=== PATIENT | female | born 1985 | race Caucasian/White ===

== ENCOUNTER 2024-05-15 18:03 | Emergency (ER) | payer OTHER ==
[2024-05-15 18:51] LABS: Specific Gravity 1.014 (1.005-1.030); Sqamous Epithelial <5 /HPF (None Seen); Urine Bacteria <20 /HPF (<20); Urine Bilirubin NEGATIVE (Negative); Urine Blood 2+ (Negative); Urine Clarity Extremely Turbid (Clear); Urine Color Yellow (Yellow); Urine Crystals Unidentified Few /HPF (None Seen); Urine Culture Reflex Order REFLEXED; Urine Glucose NEGATIVE (Negative); Urine Ketones NEGATIVE (Negative); Urine Microscopic Reflex YN ORDER UMIC; Urine Mucus Slight /HPF (None Seen); Urine Nitrite 2+ (Negative); Urine Protein 1+ (Negative); Urine Urobilinogen Normal (Normal); Urine WBC >50 /HPF (<5); Urine WBC Clump Many /HPF (None Seen); Urine Yeast (Budding) Few /HPF (None Seen)
--- NOTE | 2024-05-15 19:33 | RAD REPORT ---
EXAMINATION: CT ABDOMEN AND PELVIS WITHOUT CONTRAST CLINICAL INDICATION: FLANK PAIN TECHNIQUE: CT abdomen and pelvis was performed, without IV contrast, as per department protocol. Axia l, sagittal and coronal reconstructions were obtained. One or more of the following dose reduction techniques were used: Automated exposure control, adjustment of the mA and kV according to the patien t size, and iterative reconstruction. Unless otherwise specified, incidental findings do not require dedicated imaging follow-up. COMPARISON: No prior exam. FINDINGS: The lack of intravenous contrast limits the sensitivity of this exam for evaluation of solid visceral organs, vascular structures, and retroperitoneum. LOWER CHEST: The visualized lung bases are clear. LIVER:Normal in size and contour. No focal lesion. Cholecystectomy clips. SPLEEN: Normal size. No focal lesion. PANCREAS: No mass, ductal dilation, or azul-pancreatic fluid. ADRENALS: Normal; no mass. KIDNEYS AND URETERS: Normal size and contour. No hydronephrosis. URINARY BLADDER: Normal contour. GASTROINTESTINAL TRACT: No evidence of bowel obstruction, significant free fluid, free air or abscess . APPENDIX: Normal appendix. LYMPH NODES: No lymphadenopathy. MUSCULOSKELETAL: No acute or suspicious osseous abnormality. ADDITIONAL FINDINGS: Spinal stimulator device. IMPRESSION: No acute or concerning abnormalities in the abdomen or pelvis, with evaluation limited by lack of IV contrast.
[2024-05-15] MEDS ORDERED: NA CHLORIDE 0.9% 1,000 ML ONE (19:48)
[2024-05-15] MEDS ORDERED: KETOROLAC 30 MG/ML INJ ONE (19:48)
[2024-05-15] MEDS ORDERED: ONDANSETRON 4 MG/2 ML VIAL ONE ×2 (19:48→20:39)
[2024-05-15 19:49] LABS: Absolute Basophils 0.1 K/uL (0-0.5); Absolute Eosinophils 0.3 K/uL (0-0.5); Absolute Lymphocytes (CBC) 2.5 K/uL (0.7-4.9); Absolute Neutrophil 7.9 K/uL (1.8-8.0); Basophils % 0.8 % (0-1.3); Eosinophils % 2.2 % (0-4.4); Hematocrit 38.2 % (36.0-45.0); Lymphocytes % 21.4 % (15.3-44.8); MCH 31.8 pg (27.0-35.0); MCV 93.8 fL (80-100); MPV 9.1 fL (7.6-11.3); Monocytes % 8.7 % (3.3-12.3); Neutrophils % 66.9 % (41.7-73.7); Platelets 276 thou/uL (152-406); RBC Red Blood Cell Count 4.07 M/uL (3.86-4.86); Red Cell Distribution Width 13.7 % (12.1-15.2)
[2024-05-15 20:06] LABS: Albumin 3.4 g/dL (3.4-5.0); Albumin/Globulin Ratio 0.9 (1.1-1.8); Anion Gap 11.6 mEq/L (5.0-15.0); Globulin 3.6 g/dL (2.3-3.5); Potassium 3.6 mEq/L (3.5-5.1)
--- NOTE | 2024-05-15 20:26 | EDPHYS ---
Physician Documentation [facility] Name: Anaid Perez Age: 38 yrs Sex: Female : 1985 Arrival Date: 05/15/2024 Time: 18:03 Bed DX3 Private MD: ED Physician Sarthak Harding HPI: 05/15 20:21 This 38 yrs old Female presents to ER via Ambulatory with complaints of Back Pain, SIDE kb PAIN. 20:24 Pt is a 38 year old female who presents for right flank pain that radiates to abd and kb urinary frequency/urgency since yesterday. Reports nausea and vomiting today. Denies fever. . 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 - Infectious Disease History:: Denies. - Social history:: Smoking status: Reported history of juuling and/or vaping. ROS: 20:17 Constitutional: As per HPI kb Exam: 20:17 Constitutional: This is a well developed, well nourished patient who is awake, alert, kb and in no acute distress. Head/Face: Normocephalic, atraumatic. ENT: Moist Mucous membranes Cardiovascular: Regular rate Respiratory: Respirations even and unlabored. No increased work of breathing. Talking in full sentences Abdomen/GI: Soft, non-tender. No distention Skin: Warm, dry with normal turgor. Normal color. MS/ Extremity: Pulses equal, no cyanosis. Neurovascular intact. Full, normal range of motion. Neuro: Awake and alert, GCS 15, oriented to person, place, time, and situation. 20:17 Back: CVA tenderness, that is mild, is noted on the right, Vital Signs: 18:13 BP 127 / 91; Pulse 78; Resp 18; Temp 99; Pulse Ox 98% ; Weight 81.65 kg; Height 4 ft. db 11 in. ; 18:13 Body Mass Index 36.36 (81.65 kg, 149.86 cm) db MDM: 18:09 Medical Screening Exam initiated kb 20:21 Differential diagnosis: kidney stone, uti, pyelonephritis. Data reviewed: vital signs, kb nurses notes. Counseling: I had a detailed discussion with the patient and/or guardian regarding the historical points, exam findings, and any diagnostic results supporting the discharge/admit diagnosis, lab results, radiology results, the need for outpatient follow up, a family practitioner, to return to the emergency department if symptoms worsen or persist or if there are any questions or concerns that arise at home. 05/15 18:15 Order name: CBC with Diff; Complete Time: 20:00 kb 05/15 18:15 Order name: CMP; Complete Time: 20:12 kb 05/15 18:15 Order name: Lipase; Complete Time: 20:12 kb 05/15 18:15 Order name: Test, Urine; Complete Time: 18:54 kb 05/15 18:15 Order name: Urinalysis w/ reflexes; Complete Time: 18:54 kb 05/15 18:54 Order name: Urine Culture EDMS 05/15 18:15 Order name: CT Stone Protocol; Complete Time: 19:37 kb 05/15 18:15 Order name: IV Saline Lock; Complete Time: 19:45 kb 05/15 18:15 Order name: Labs collected and sent; Complete Time: 19:46 kb Administered Medications: 19:56 Drug: TORadol - Ketorolac IVP 15 mg IVP once Route: IVP; Site: left antecubital; vc1 05/16 00:58 Follow up: Response: No adverse reaction; Marked relief of symptoms vc1 05/15 19:56 Drug: Ondansetron IVP 4 mg IVP once; over 2 minutes Route: IVP; Site: left antecubital; vc1 20:00 Follow up: Response: No adverse reaction; Marked relief of symptoms vc1 19:56 Drug: NS 0.9% IV 1000 ml IV at 1 bolus Per protocol; to be given as a bolus over 60 vc1 minutes Route: IV; Rate: 1 bolus; Site: left antecubital; 20:56 Follow up: IV Status: Completed infusion; IV Intake: 1000ml vc1 20:51 Drug: Ondansetron IVP 4 mg IVP once; over 2 minutes Route: IVP; Site: left antecubital; vc1 21:00 Follow up: Response: No adverse reaction; Marked relief of symptoms vc1 20:51 Drug: Rocephin IV 1 grams IV at calculated rate once; Given slow IV push per pharmacy vc1 instructions Route: IV; Rate: calculated rate; Site: left antecubital; 21:00 Follow up: IV Status: Completed infusion; IV Intake: 10ml vc1 Disposition Summary: 05/15/24 20:25 Discharge Ordered Notes: Location: Home kb Condition: Stable kb Diagnosis - UTI/ Urinary tract infection, site not specified kb Followup: kb - With: Emergency Department - When: As needed - Reason: Worsening of condition Followup: kb - With: Private Physician - When: 2 - 3 days - Reason: Recheck today's complaints, Continuance of care, Re-evaluation by your physician Discharge Instructions: - Discharge Summary Sheet kb - Urinary Tract Infection, Adult, [id number] kb Forms: - Medication Reconciliation Form kb - Antibiotic Education kb - Prescription Opioid Use kb - Patient Portal Instructions kb - Leadership Thank You Letter kb Prescriptions: - Augmentin 875-125 mg Oral Tablet - take 1 tablet ORAL route every 12 hours for 10 days; 20 tablet; Refills: 0, kb Product Selection Permitted - Zofran 4 mg Oral tablet - take 1 tablet ORAL route every 6 hours As needed; 12 tablet; Refills: 0, kb Product Selection Permitted Addendum: 05/19/2024 09:23 Co-signature as Attending Physician, Sarthak Harding MD I reviewed the patient's care r t provided by the Advanced Practice Provider and agree with the diagnosis and treatment plan. Signatures: Dispatcher [employer] [facility] Catherine Sifuentes, RAILROAD INSPECTOR-C RAILROAD INSPECTOR-Brandonb Melissa Marsh RN RN vc1 Ana Connolly RN RN db Sarthak Harding MD MD rt Corrections: (The following items were deleted from the chart) 05/15 18:16 18:16 Stone Protocol+CT.RAD.BRZ ordered. EDMS EDMS 18:16 18:16 CBC+H.LAB.BRZ ordered. EDMS EDMS 18:16 18:16 COMPREHENSIVE METABOLIC PANEL+C.LAB.BRZ ordered. EDMS EDMS 18:16 18:16 LIPASE+C.LAB.BRZ ordered. EDMS EDMS 18:16 18:16 Test, Urine+UC.LAB.BRZ ordered. EDMS EDMS 18:16 18:16 Urinalysis+U.LAB.BRZ ordered. EDMS EDMS
--- NOTE | 2024-05-15 20:26 | ER ---
Nurse's Notes [facility] Name: Anaid Perez Age: 38 yrs Sex: Female : 1985 Arrival Date: 05/15/2024 Time: 18:03 Bed DX3 Private MD: Diagnosis: UTI/ Urinary tract infection, site not specified Presentation: 05/15 18:13 Chief complaint: Patient states: RIGHT FLANK PAIN RADIATING TO ABDOMEN WITH PAINFUL db URINATION AND N/V SINCE YESTERDAY. FREQUENT URINATION. Coronavirus screen: Client denies travel out of the [place] in the last 14 days. At this time, the client does not indicate any symptoms associated with coronavirus-19. Ebola Screen: Patient negative for fever greater than or equal to 101.5 degrees Fahrenheit, and additional compatible Ebola Virus Disease symptoms Patient denies exposure to infectious person. Patient denies travel to an Ebola-affected area in the 21 days before illness onset. No symptoms or risks identified at this time. Initial Sepsis Screen: Does the patient meet any 2 criteria? No. Patient's initial sepsis screen is negative. Does the patient have a suspected source of infection? No. Patient's initial sepsis screen is negative. Risk Assessment: Do you want to hurt yourself or someone else? Patient reports no desire to harm self or others. Onset of symptoms was May 15, 2024. 18:13 Method Of Arrival: Ambulatory db 18:13 Acuity: KERLINE 3 db Triage Assessment: 18:14 General: Appears in no apparent distress. comfortable, Behavior is calm, cooperative. db Pain: Complains of pain in right low back. Neuro: Level of Consciousness is awake, alert, obeys commands, Oriented to person, place, time, situation. Respiratory: Airway is patent Respiratory effort is even, unlabored, Respiratory pattern is. GI: Abdomen is non-distended, Reports nausea, vomiting. Musculoskeletal: Circulation, motion, and sensation intact. Capillary refill < 3 seconds. 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 - Infectious Disease History:: Denies. - Social history:: Smoking status: Reported history of juuling and/or vaping. Screenin:00 [facility] ED Fall Risk Assessment (Adult) History of falling in the last 3 months, vc1 including since admission No falls in past 3 months (0 pts) Confusion or Disorientation No (0 pts) Intoxicated or Sedated No (0 pts) Impaired Gait No (0 pts) Mobility Assist Device Used No (0 pt) Altered Elimination No (0 pt) Score/Fall Risk Level 0 - 2 = Low Risk Oriented to surroundings, Maintained a safe environment, Educated pt \T\ family on fall prevention, incl call for assistance when getting out of bed. Abuse screen: Denies threats or abuse. Nutritional screening: No deficits noted. Tuberculosis screening: No symptoms or risk factors identified. Assessment: 19:30 General: Appears in no apparent distress. uncomfortable, slender, well groomed, well vc1 developed, well nourished, Behavior is calm, cooperative, appropriate for age. Pain: Complains of pain in right low back Pain radiates to anterior aspect of right lateral abdomen Pain currently is 9 out of 10 on a pain scale. Neuro: Level of Consciousness is awake, alert, obeys commands, Oriented to person, place, time, situation, Appropriate for age. Cardiovascular: Heart tones S1 S2 present Capillary refill < 3 seconds Patient's skin is warm and dry. Respiratory: Airway is patent Respiratory effort is even, unlabored, Respiratory pattern is regular, symmetrical, Breath sounds are clear bilaterally. GI: Abdomen is round non-distended. : No deficits noted. No signs and/or symptoms were reported regarding the genitourinary system. EENT: No deficits noted. No signs and/or symptoms were reported regarding the EENT system. Derm: Skin is intact, is healthy with good turgor, Skin is dry, Skin is normal, Skin temperature is warm. Musculoskeletal: Range of motion: intact in all extremities. Vital Signs: 18:13 BP 127 / 91; Pulse 78; Resp 18; Temp 99; Pulse Ox 98% ; Weight 81.65 kg; Height 4 ft. db 11 in. ; 18:13 Body Mass Index 36.36 (81.65 kg, 149.86 cm) db ED Course: 18:08 Patient arrived in ED. gm2 18:09 Catherine Sifuentes FNP-C [facility] kb 18:09 Sarthak Harding MD is Attending Physician. kb 18:14 Triage completed. db 18:14 Arm band placed on Patient placed in waiting room. db 19:27 CT Stone Protocol In Process Unspecified. EDMS 19:45 Inserted saline lock: 20 gauge in left antecubital area, using aseptic technique. Blood vc1 collected. Flushed with 10 mL NS. 19:46 CBC with Diff Sent. vc1 19:46 CMP Sent. vc1 19:46 Lipase Sent. vc1 20:50 Provided Education on: complete abx. vc1 20:50 Patient has correct armband on for positive identification. seen in diagnostic chair. vc1 20:50 No provider procedures requiring assistance completed. IV discontinued, intact, vc1 bleeding controlled, No redness/swelling at site. Pressure dressing applied. Administered Medications: 19:56 Drug: TORadol - Ketorolac IVP 15 mg IVP once Route: IVP; Site: left antecubital; vc1 05/16 00:58 Follow up: Response: No adverse reaction; Marked relief of symptoms vc1 05/15 19:56 Drug: Ondansetron IVP 4 mg IVP once; over 2 minutes Route: IVP; Site: left antecubital; vc1 20:00 Follow up: Response: No adverse reaction; Marked relief of symptoms vc1 19:56 Drug: NS 0.9% IV 1000 ml IV at 1 bolus Per protocol; to be given as a bolus over 60 vc1 minutes Route: IV; Rate: 1 bolus; Site: left antecubital; 20:56 Follow up: IV Status: Completed infusion; IV Intake: 1000ml vc1 20:51 Drug: Ondansetron IVP 4 mg IVP once; over 2 minutes Route: IVP; Site: left antecubital; vc1 21:00 Follow up: Response: No adverse reaction; Marked relief of symptoms vc1 20:51 Drug: Rocephin IV 1 grams IV at calculated rate once; Given slow IV push per pharmacy vc1 instructions Route: IV; Rate: calculated rate; Site: left antecubital; 21:00 Follow up: IV Status: Completed infusion; IV Intake: 10ml vc1 Medication: 20:50 VIS not applicable for this client. vc1 Intake: 20:56 IV: 1000ml; Total: 1000ml. vc1 21:00 IV: 10ml; Total: 1010ml. vc1 Outcome: 20:25 Discharge ordered by . sintia 20:50 Discharged to home ambulatory, vc1 20:50 Condition: stable 20:50 Discharge instructions given to patient, Instructed on discharge instructions, follow up and referral plans. medication usage, Demonstrated understanding of instructions, follow-up care, medications, Prescriptions given X 2, 20:51 Patient left the ED. vc1 Signatures: Dispatcher [employer] EDMS Catherine Sifuentes, SHILOH RUBBLE PLACER-Melissa Mckeon RN RN vc1 Ana Connolly RN RN db Mitchell, Ginger 2 Corrections: (The following items were deleted from the chart) 05/16 00:53 05/15 22:00 No provider procedures requiring assistance completed. vc1 vc1 05/16 00:53 05/15 22:00 IV discontinued, intact, bleeding controlled, No redness/swelling at site. vc1 Pressure dressing applied, vc1 05/16 99: 00:55 General: Appears in no apparent distress. uncomfortable, slender, well groomed, vc1 well developed, well nourished, Behavior is calm, cooperative, appropriate for age, vc1 00:55 Pain: Complains of pain in right low back Pain radiates to anterior aspect of vc1 right lateral abdomen Pain currently is 9 out of 10 on a pain scale. vc1 : 00:55 Neuro: Level of Consciousness is awake, alert, obeys commands, Oriented to vc1 person, place, time, situation, Appropriate for age vc1 : 00:55 Cardiovascular: Heart tones S1 S2 present Capillary refill < 3 seconds Patient's vc1 skin is warm and dry. vc1 : 00:55 GI: Abdomen is round non-distended, vc1 vc1 : 00:55 Respiratory: Airway is patent Respiratory effort is even, unlabored, Respiratory vc1 pattern is regular, symmetrical, Breath sounds are clear bilaterally. vc1 00:55 : No deficits noted. No signs and/or symptoms were reported regarding the vc1 genitourinary system. vc1 00:55 EENT: No deficits noted. No signs and/or symptoms were reported regarding the vc1 EENT system. [facility] 00:57 00:55 Derm: Skin is intact, is healthy with good turgor, Skin is dry, Skin is normal, 1 Skin temperature is warm [facility] 00:57 00:55 Musculoskeletal: Range of motion: intact in all extremities, [place] [id number]
[2024-05-15] MEDS ORDERED: CEFTRIAXONE 1000 MG/VIAL ONE (20:39)
[2024-05-15 21:03] VITALS: BP 127/91; TEMP 99; O2SAT 98
== END 2024-05-15 20:51 | disposition home or self-care (01) ==
LOC: ER 18:03
DX: N39.0 Urinary tract infection, site not specified (principal); Z87.442 Personal history of urinary calculi
CPT/HCPCS: 87088; 85025; 81001; 87086; 36415; 81025; 83690; 80053; 76377; 74176; J2405 ×2; J7030; J0696; 87077; 87186; 96361; 96374; 96375; 99284

== ENCOUNTER 2024-08-05 21:08 | Emergency (ER) | payer OTHER ==
[2024-08-05 23:23] LABS: Absolute Basophils 0.1 K/uL (0-0.5); Absolute Eosinophils 0.3 K/uL (0-0.5); Absolute Lymphocytes (CBC) 2.6 K/uL (0.7-4.9); Absolute Monocytes 0.9 K/uL (0.1-1.3); Absolute Neutrophil 5.7 K/uL (1.8-8.0); Eosinophils % 3.5 % (0-4.4); Hematocrit 38.5 % (36.0-45.0); Hemoglobin 13.3 g/dL (12.0-15.0); Lymphocytes % 27.3 % (15.3-44.8); MCHC 34.5 g/dL (32.0-36.0); MCV 95.5 fL (80-100); Monocytes % 9.5 % (3.3-12.3); Neutrophils % 58.7 % (41.7-73.7); Nucleated Red Blood Cells % 0.1 % (0-0); Platelets 286 thou/uL (152-406); RBC Red Blood Cell Count 4.03 M/uL (3.86-4.86); Red Cell Distribution Width 13.3 % (12.1-15.2)
[2024-08-05 23:27] LABS: Specific Gravity 1.023 (1.005-1.030)
[2024-08-05 23:31] LABS: Specific Gravity 1.023 (1.005-1.030); Sqamous Epithelial <5 /HPF (None Seen); Urine Bacteria <20 /HPF (<20); Urine Bilirubin NEGATIVE (Negative); Urine Blood 3+ (Negative); Urine Clarity Extremely Turbid (Clear); Urine Color Yellow (Yellow); Urine Culture Reflex Order NOT NEEDED; Urine Glucose NEGATIVE (Negative); Urine Ketones NEGATIVE (Negative); Urine Microscopic Reflex YN ORDER UMIC; Urine Mucus Slight /HPF (None Seen); Urine Nitrite NEGATIVE (Negative); Urine Protein NEGATIVE (Negative); Urine RBC >50 /HPF (None Seen); Urine Urobilinogen 1+ (Normal); Urine WBC <5 /HPF (<5)
[2024-08-05 23:36] LABS: ALT/SGPT 27 U/L (13-56); Albumin 3.5 g/dL (3.4-5.0); Alkaline Phosphatase 75 U/L (45-117); Anion Gap 8.6 mEq/L (5.0-15.0); BUN Blood Urea Nitrogen 11 mg/dL (7-18); Bicarbonate 26 mEq/L (21-32); Bilirubin Total 0.9 mg/dL (0.2-1.0); Globulin 3.6 g/dL (2.3-3.5); Glomerular Filtration Rate 107 ml/min (=/>90); Glucose Level 99 mg/dL (74-106); Lipase 78 U/L (13-75); Potassium 3.6 mEq/L (3.5-5.1); Protein, Total 7.1 g/dL (6.4-8.2); Sodium Level 138 mEq/L (136-145)
[2024-08-05] MEDS ORDERED: MORPHINE 4 MG/ML SYR ONE (23:36)
[2024-08-05] MEDS ORDERED: NA CHLORIDE 0.9% 1,000 ML ONE (23:36)
[2024-08-05] MEDS ORDERED: METOCLOPRAMIDE 10 MG/2mL INJ ONE (23:36)
[2024-08-05] MEDS ORDERED: DIPHENHYDRAMINE 50 MG/ML VIAL ONE (23:36)
[2024-08-05 23:39] LABS: AST/SGOT < 10 U/L (15-37)
--- NOTE | 2024-08-06 01:34 | RAD REPORT ---
CT ABDOMEN PELVIS WITHOUT THEN WITH IV CONTRAST CLINICAL INDICATION: Right flank, right lower quadrant pain COMPARISON: CT abdomen pelvis 05/15/2024 TECHNIQUE: CT images of the abdomen and pelvis obtained prior to and following the administration of intravenous contrast. Multiplanar reformats were provided. Dose-optimization techniques such as automated exposure control, iterative reconstruction, and mA and/or kV adjustment for patient size wa s utilized for this examination. FINDINGS: LOWER CHEST: Unremarkable. LIVER: Unremarkable. BILIARY: Status post cholecystectomy with surgical clips at gallbladder fossa. Mild prominence of c entral intrahepatic biliary duct, likely related to postcholecystectomy status. PANCREAS: Unremarkable. SPLEEN: Unremarkable. ADRENALS: Unremarkable. KIDNEYS/URETERS: No nephrolithiasis or hydronephrosis. No suspicious lesion. STOMACH: Unremarkable. BOWEL: Unremarkable. APPENDIX: Normal. PERITONEUM/RETROPERITONEUM: Unremarkable. LYMPH NODES: Unremarkable. URINARY BLADDER: Unremarkable. REPRODUCTIVE: Unremarkable. VASCULAR: Unremarkable. ABDOMINAL/PELVIC WALL: Spinal stimulator device in place. BONES: Unremarkable. IMPRESSION: No acute inflammatory changes in the abdomen and pelvis. Electronically signed by: Mary Peters MD 08/06/2024 01:01 AM [facility] Due to temporary technical issues with the PACS/[employer] reporting system, reports are being jessee d by the in-house radiologist without review as a courtesy to ensure prompt reporting the interpreting radiologist is fully responsible for the content of the report. Transcribed Date/Time: 08/06/2024 1:34 AM
--- NOTE | 2024-08-06 02:26 | EDPHYS ---
Physician Documentation [facility] Name: Anaid Perze Age: 38 yrs Sex: Female : 1985 Arrival Date: 08/05/2024 Time: 21:08 Bed 14 Private MD: ED Physician Stewart Choudhury HPI: 08/05 22:00 This 38 yrs old Female presents to ER via Ambulatory with complaints of Abdominal Pain. cp 22:00 The patient presents with abdominal pain right lower quadrant. Onset: The cp symptoms/episode began/occurred this morning. The symptoms radiate to right back, the right flank. Associated signs and symptoms: Pertinent positives: nausea. 22:00 The symptoms are described as constant. cp 22:00 Severity of pain: in the emergency department the pain is actually worse. cp Historical: - Allergies: 08/06 00:24 Latex; km10 00:24 Sulfa (Sulfonamide Antibiotics); km10 - PMHx: 08/05 21:38 Kidney stone; br2 - PSHx: 21:38 hysterectomy; OOPHORECTOMY (Kidney stone ); br2 - Immunization history:: Adult Immunizations up to date. - Infectious Disease History:: Denies. - Social history:: Smoking status: Patient reports the use of cigarette tobacco products, smokes one-half pack cigarettes per day, Patient/guardian denies using alcohol, street drugs. ROS: 22:05 Constitutional: Negative for body aches, chills, fever, poor PO intake, cp 22:05 Eyes: Negative for injury, pain, redness, and discharge, cp 22:05 ENT: Negative for drainage from ear(s), ear pain, sore throat, difficulty swallowing, difficulty handling secretions, 22:05 Cardiovascular: Negative for chest pain, edema, palpitations, 22:05 Respiratory: Negative for cough, shortness of breath, wheezing, 22:05 Abdomen/GI: Positive for abdominal pain, nausea, Negative for vomiting, diarrhea, constipation, 22:05 : Positive for flank pain, Negative for vaginal bleeding, vaginal discharge, 22:05 Skin: Negative for rash, 22:05 All other systems are negative, Exam: 22:10 Constitutional: The patient appears in no acute distress, alert, awake, non-toxic, well cp developed, well nourished, obese, uncomfortable, 22:10 Head/Face: Normocephalic, atraumatic. cp 22:10 Eyes: Periorbital structures: appear normal, Conjunctiva: normal, no exudate, no injection, Sclera: no appreciated abnormality, Lids and lashes: appear normal, bilaterally, 22:10 ENT: External ear(s): are unremarkable, Nose: is normal, Mouth: Lips: moist, Oral mucosa: moist, Posterior pharynx: Airway: no evidence of obstruction, patent, 22:10 Chest/axilla: Inspection: normal, 22:10 Cardiovascular: Rate: normal, Rhythm: regular, 22:10 Respiratory: the patient does not display signs of respiratory distress, Respirations: normal, no use of accessory muscles, no appreciated paradoxical movements, intercostal retractions, are absent, 22:10 Abdomen/GI: Inspection: obese Bowel sounds: active, all quadrants, Palpation: soft, in the abdomen diffusely, moderate abdominal tenderness, in the anterior aspect of right lateral abdomen and right lower quadrant, rebound tenderness, is not appreciated, voluntary guarding, is elicited in the right lower quadrant, 22:10 Back: CVA tenderness, is absent, 22:10 Skin: no rash present. Vital Signs: 21:35 BP 143 / 95; Pulse 92; Resp 18; Temp 98; Pulse Ox 99% ; Weight 83.91 kg; Height 4 ft. br2 11 in. ; Pain 9/10; 22:30 BP 119 / 68; Pulse 77; Resp 18; Temp 98.6; Pulse Ox 100% on R/A; km10 08/06 02:45 BP 130 / 92; Pulse 76; Resp 16; Temp 97.6; Pulse Ox 98% on R/A; km10 08/05 21:35 Body Mass Index 37.36 (83.91 kg, 149.86 cm) br2 08/05 21:35 Pain Scale: Adult br2 MDM: 08/05 21:40 Medical Screening Exam initiated cp 08/06 02:25 Data reviewed: vital signs, nurses notes, lab test result(s), EKG, and as a result, I cp will discharge patient. 02:25 Differential diagnosis: appendicitis, Endometriosis, non-specific abd pain, Ovarian cp Torsion, Pyelonephritis, Tubal Ovarian Abcess, Ureterolithiasis, urinary tract infection. I considered the following discharge prescriptions or medication management in the emergency department Medications were administered in the Emergency Department. See MAR. Counseling: I had a detailed discussion with the patient and/or guardian regarding the historical points, exam findings, and any diagnostic results supporting the discharge/admit diagnosis, the presence of at least one elevated blood pressure reading (>120/80) during this emergency department visit, lab results, radiology results, to return to the emergency department if symptoms worsen or persist or if there are any questions or concerns that arise at home. Response to treatment: the patient's symptoms have mildly improved after treatment, and as a result, I will discharge patient. Special discussion: Based on the patient's Hx, exam, and Dx evaluation, there is no indication for emergent surgery or inpatient Tx. It is understood by the patient/guardian that if the Sx's persist or worsen they need to return immediately for re-evaluation. 08/05 22:54 Order name: CBC with Diff; Complete Time: 23:47 cp 08/05 22:54 Order name: CMP; Complete Time: 23:47 cp 08/06 02:10 Interpretation: Reviewed. 08/05 22:54 Order name: Lipase; Complete Time: 23:47 cp 08/05 22:54 Order name: Test, Urine; Complete Time: 23:47 cp 08/05 22:54 Order name: UA Rfx Eulogio Cult if indicated; Complete Time: 23:47 cp 08/05 23:48 Order name: CT Abd/Pelvis- W/WO Contrast cp 08/06 02:10 Interpretation: Reviewed. 08/05 22:54 Order name: IV Saline Lock; Complete Time: 23:35 cp 08/05 22:54 Order name: Labs collected and sent; Complete Time: 23:35 cp 08/06 02:11 Order name: PO challenge; Complete Time: 02:44 cp Administered Medications: 08/05 23:52 Drug: morphine IVP or IV 4 mg IVP once over 4 mins Route: IVP; Infused Over: 4 mins; [facility] Site: right antecubital; 08/06 00:16 Follow up: Response: No adverse reaction [facility] 08/05 23:52 Drug: NS 0.9% IV 1000 ml IV at 1000 ml once; to be given as a bolus over 60 minutes [facility] Route: IV; Rate: 1000 ml; Site: right antecubital; 08/06 03:06 Follow up: Response: No adverse reaction; IV Status: Completed infusion [facility] 08/05 23:53 Drug: metoCLOPramide IVP 10 mg IVP once; over 1 to 2 minutes Route: IVP; Site: right 10 antecubital; 08/06 00:17 Follow up: Response: No adverse reaction [facility] 08/05 23:53 Drug: diphenhydrAMINE IVP 25 mg IVP once Route: IVP; Site: right antecubital; [facility] 08/06 00:16 Follow up: Response: No adverse reaction [facility] 02:44 Drug: Promethazine IM 25 mg IM once Route: IM; Site: left deltoid; [facility] 02:49 Follow up: Response: No adverse reaction [facility] 02:44 Drug: Ketorolac IM 30 mg IM once Route: IM; Site: right deltoid; 02:49 Follow up: Response: No adverse reaction [facility] 02:44 Drug: Hydrocodone-Acetaminophen PO (7.5 mg-325 mg) 1 tabs PO once; RASS on ADMIN: [facility] Combtv4, Very Agttd3, Agttd2, Rstlss1, AlertClm0, Drwsy-1, Lt Sdtn-2, Mod Sdtn-3, Dp Sdtn-4, UnArsble-5 Route: PO; 02:49 Follow up: Response: No adverse reaction; Pain is decreased Disposition: 19:30 Co-signature as Attending Physician, Stewart Choudhury MD I agree with the assessment sp4 and plan of care. I reviewed the patient's care provided by the Advanced Practice Provider and agree with the diagnosis and treatment plan. Disposition Summary: 08/06/24 02:26 Discharge Ordered Notes: Location: Home cp Problem: new cp Symptoms: have improved cp Condition: Stable cp Diagnosis - Lower abdominal pain, unspecified cp - Dorsalgia, unspecified cp Followup: cp - With: Private Physician - When: 2 - 3 days - Reason: Worsening of condition Discharge Instructions: - Discharge Summary Sheet cp - Abdominal Pain, Adult cp - Acute Back Pain, Adult cp Forms: - Medication Reconciliation Form cp - Antibiotic Education cp - Prescription Opioid Use cp - Patient Portal Instructions cp - Leadership Thank You Letter cp Prescriptions: - Anaprox DS 550 mg Oral Tablet - take 1 tablet ORAL route every 12 hours As needed; 20 tablet; Refills: 0, cp Product Selection Permitted - promethazine 25 mg Oral Tablet - take 1 tablet ORAL route every 6 hours As needed; 20 tablet; Refills: 0, cp Product Selection Permitted Signatures: Dispatcher [employer] EDMS Ru Roque PA PA cp Stewart Choudhury MD MD sp4 Ana Shaikh RN RN br2 Amy Moulton RN RN km10 Corrections: (The following items were deleted from the chart) 08/05 23:17 23:17 Abdomen Pelvis W Con+CT.RAD.BRZ ordered. EDMS EDMS 23:48 23:48 Abdomen Pelvis W/Wo Con+CT.RAD.BRZ ordered. EDMS EDMS
--- NOTE | 2024-08-06 02:26 | ER ---
Nurse's Notes [facility] Name: Anaid Perez Age: 38 yrs Sex: Female : 1985 Arrival Date: 08/05/2024 Time: 21:08 Bed 14 Private MD: Diagnosis: Lower abdominal pain, unspecified;Dorsalgia, unspecified Presentation: 08/05 21:35 Chief complaint: Patient states: RLQ PAIN AND RADIATES TO RIGHT FLANK, NAUSEA BEGAN AT br2 APPROX 7AM. 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 Coronavirus screen: Client denies travel out of the [place] in the last 14 days. Ebola Screen: Patient denies exposure to infectious person. Initial Sepsis Screen: Does the patient meet any 2 criteria? No. Patient's initial sepsis screen is negative. Does the patient have a suspected source of infection? No. Patient's initial sepsis screen is negative. Risk Assessment: Do you want to hurt yourself or someone else? Patient reports no desire to harm self or others. Onset of symptoms was August 05, 2024 at 07:00. 21:35 Method Of Arrival: Ambulatory br2 21:35 Acuity: KERLINE 3 br2 Triage Assessment: 21:38 General: Appears uncomfortable, Behavior is calm, cooperative. Pain: Complains of pain br2 in right lower quadrant Pain radiates to right low back. GI: Reports lower abdominal pain, nausea. Historical: - Allergies: 08/06 00:24 Latex; km10 00:24 Sulfa (Sulfonamide Antibiotics); km10 - PMHx: 08/05 21:38 Kidney stone; br2 - PSHx: 21:38 hysterectomy; OOPHORECTOMY (Kidney stone ); br2 - Immunization history:: Adult Immunizations up to date. - Infectious Disease History:: Denies. - Social history:: Smoking status: Patient reports the use of cigarette tobacco products, smokes one-half pack cigarettes per day, Patient/guardian denies using alcohol, street drugs. Screenin/20 00:22 [facility] ED Fall Risk Assessment (Adult) History of falling in the last 3 months, km10 including since admission No falls in past 3 months (0 pts) Confusion or Disorientation No (0 pts) Intoxicated or Sedated No (0 pts) Impaired Gait No (0 pts) Mobility Assist Device Used No (0 pt) Altered Elimination No (0 pt) Score/Fall Risk Level 0 - 2 = Low Risk. Abuse screen: Denies threats or abuse. Denies injuries from another. Nutritional screening: No deficits noted. Tuberculosis screening: No symptoms or risk factors identified. Assessment: 08/05 22:30 General: Appears in no apparent distress. Behavior is cooperative, appropriate for age. km10 22:30 Pain: Complains of pain in right lower quadrant Pain radiates to right low back Pain km10 currently is 9 out of 10 on a pain scale. Quality of pain is described as crampy, Pain began "this morning" Is continuous. Neuro: Level of Consciousness is awake, alert, Oriented to person, place, time, situation. Respiratory: Respiratory effort is even, unlabored. : Reports urinary frequency. 08/06 00:23 GI: Bowel sounds present X 4 quads. Abd is soft and non tender X 4 quads. km10 Vital Signs: 08/05 21:35 BP 143 / 95; Pulse 92; Resp 18; Temp 98; Pulse Ox 99% ; Weight 83.91 kg; Height 4 ft. br2 11 in. ; Pain 9/10; 22:30 BP 119 / 68; Pulse 77; Resp 18; Temp 98.6; Pulse Ox 100% on R/A; km10 08/06 02:45 BP 130 / 92; Pulse 76; Resp 16; Temp 97.6; Pulse Ox 98% on R/A; km10 08/05 21:35 Body Mass Index 37.36 (83.91 kg, 149.86 cm) br2 08/05 21:35 Pain Scale: Adult br2 ED Course: 08/05 21:12 Patient arrived in ED. al6 21:26 Ru Roque PA is PHCP. cp 21:26 Stewart Choudhury MD is Attending Physician. cp 21:38 Triage completed. br2 22:52 Amy Moulton, TEO is Primary Nurse. km10 23:35 Initial lab(s) drawn, by me, sent to lab. Inserted saline lock: 20 gauge in right rk3 antecubital area, using aseptic technique. Blood collected. Flushed with 10 mL NS. 08/06 00:20 CT Abd/Pelvis- W/WO Contrast In Process Unspecified. EDMS 00:23 No provider procedures requiring assistance completed. [facility] 00:23 Patient has correct armband on for positive identification. Bed in low position. Call [facility] light in reach. Side rails up X2. Provided Education on: plan of care. Door closed. Noise minimized. Lights dimmed. Warm blanket given. Pillow given. 02:20 Emesis basin given. [facility] 03:05 IV discontinued, intact, bleeding controlled, No redness/swelling at site. Pressure dressing applied. Administered Medications: 08/05 23:52 Drug: morphine IVP or IV 4 mg IVP once over 4 mins Route: IVP; Infused Over: 4 mins; [facility] Site: right antecubital; 08/06 00:16 Follow up: Response: No adverse reaction [facility] 08/05 23:52 Drug: NS 0.9% IV 1000 ml IV at 1000 ml once; to be given as a bolus over 60 minutes [facility] Route: IV; Rate: 1000 ml; Site: right antecubital; 08/06 03:06 Follow up: Response: No adverse reaction; IV Status: Completed infusion [facility] 08/05 23:53 Drug: metoCLOPramide IVP 10 mg IVP once; over 1 to 2 minutes Route: IVP; Site: right [facility] antecubital; 08/06 00:17 Follow up: Response: No adverse reaction [facility] 08/05 23:53 Drug: diphenhydrAMINE IVP 25 mg IVP once Route: IVP; Site: right antecubital; [facility] 08/06 00:16 Follow up: Response: No adverse reaction 02:44 Drug: Promethazine IM 25 mg IM once Route: IM; Site: left deltoid; 10 02:49 Follow up: Response: No adverse reaction 02:44 Drug: Ketorolac IM 30 mg IM once Route: IM; Site: right deltoid; 10 02:49 Follow up: Response: No adverse reaction 02:44 Drug: Hydrocodone-Acetaminophen PO (7.5 mg-325 mg) 1 tabs PO once; RASS on ADMIN: [facility] Combtv4, Very Agttd3, Agttd2, Rstlss1, AlertClm0, Drwsy-1, Lt Sdtn-2, Mod Sdtn-3, Dp Sdtn-4, UnArsble-5 Route: PO; 02:49 Follow up: Response: No adverse reaction; Pain is decreased km10 Outcome: 02:26 Discharge ordered by . marlon 03:04 Discharged to home ambulatory, with family, km10 03:04 Condition: stable 03:04 Discharge instructions given to patient, Instructed on discharge instructions, follow up and referral plans. no driving heavy equipment, medication usage, Demonstrated understanding of instructions, follow-up care, medications, Prescriptions given X 2, 03:07 Patient left the ED. km10 Signatures: Dispatcher [employer] EDMS Ru Roque PA PA Ana Courtney, RN RN br2 Kristin Anderson al6 Chuy Fontenot rk3 Amy Moulton RN RN km10 Corrections: (The following items were deleted from the chart) 08/05 21:43 21:35 Chief complaint: Patient states: RLQ PAIN AND RADIATES TO RIGHT FLANK, NAUSEA br2 BEGAN AT APPROX 7AM br2 21:43 21:35 83.91 kg; Height 4 ft. 11 in.; BMI: 37.3; Pain /, Adult; br2 br2
[2024-08-06] MEDS ORDERED: PROMETHAZINE INJ 25 MG/ML AMP IM ONE (02:35)
[2024-08-06] MEDS ORDERED: KETOROLAC 30 MG/ML INJ ONE (02:35)
[2024-08-06] MEDS ORDERED: HYDROCODONE/APAP 7.5/325 MG TAB ONE (02:36)
[2024-08-06 03:33] VITALS: BP 130/92; TEMP 97.6; O2SAT 98
== END 2024-08-06 03:07 | disposition home or self-care (01) ==
LOC: ER 21:08
DX: R10.31 Right lower quadrant pain (principal); M54.9 Dorsalgia, unspecified; R11.0 Nausea; F17.210 Nicotine dependence, cigarettes, uncomplicated; Z87.442 Personal history of urinary calculi
CPT/HCPCS: 96361; 85025; 81001; 36415; 81025; 83690; 80053; 74178; 96375; 96372; 96374; 99284; Q9967; J2550; J2765; J1200; J7030

== ENCOUNTER 2024-12-07 21:00 | Emergency (ER) | payer OTHER ==
[2024-12-07] MEDS ORDERED: NA CHLORIDE 0.9% 1,000 ML ONE (21:36)
[2024-12-07] MEDS ORDERED: FENTANYL CITR 100 MCG/2 ML ONE ×2 (21:36→23:27)
[2024-12-07] MEDS ORDERED: ONDANSETRON 4 MG/2 ML VIAL ONE (21:42)
[2024-12-07 21:55] LABS: Absolute Lymphocytes (CBC) 2.2 K/uL (0.7-4.9); Hematocrit 38.8 % (36.0-45.0); Hemoglobin 13.2 g/dL (12.0-15.0); MCH 31.8 pg (27.0-35.0); MCHC 33.9 g/dL (32.0-36.0); MCV 93.8 fL (80-100); MPV 9.8 fL (7.6-11.3); Nucleated RBC Absolute Count 0.0 (0-0); Nucleated Red Blood Cells % 0.0 % (0-0); RBC Red Blood Cell Count 4.14 M/uL (3.86-4.86); White Blood Count 10.50 thou/uL (4.3-10.9)
[2024-12-07 22:15] LABS: ALT/SGPT 20.0 U/L (13-56); AST/SGOT 12.0 U/L (15-37); Albumin 3.4 g/dL (3.4-5.0); Albumin/Globulin Ratio 0.9 (1.1-1.8); Alkaline Phosphatase 73.0 U/L (45-117); Anion Gap 7.1 mEq/L (5.0-15.0); BUN Blood Urea Nitrogen 12.0 mg/dL (7-18); Globulin 3.7 g/dL (2.3-3.5); Glucose Level 121.0 mg/dL (74-106); Lipase 35.0 U/L (13-75); Potassium 3.1 mEq/L (3.5-5.1)
[2024-12-07 22:20] LABS: Urine Culture Reflex Order NOT NEEDED; Urine Microscopic Reflex YN ORDER UMIC; Urine Yeast (Budding) Trace /HPF (None Seen)
--- NOTE | 2024-12-07 23:29 | RAD REPORT ---
EXAM: CT Abdomen and Pelvis Without and With Intravenous Contrast CLINICAL HISTORY: The patient is 39 years old and is Female; right side abdomen pain TECHNIQUE: Axial computed tomography images of the abdomen and pelvis without and with intravenous contrast. Sagittal and coronal reformatted images were created and reviewed. This CT exam was performed using one or more of the following dose reduction techniques: automated exposure control, adjustmen t of the mA and/or kV according to patient size, and/or use of iterative reconstruction technique. COMPARISON: August 10, 2022 FINDINGS: ARTIFACTS: The exam is suboptimal secondary to motion artifact. LUNG BASES: A left lower lobe pulmonary nodule measuring 0.8 cm is present. No consolidation. ABDOMEN: LIVER: Unremarkable. No mass. GALLBLADDER AND BILE DUCTS: Surgical clips are present in the right upper quadrant, consistent wi th previous cholecystectomy. PANCREAS: Unremarkable. No mass. No ductal dilation. SPLEEN: Unremarkable. ADRENALS: Unremarkable. No mass. KIDNEYS AND URETERS: The kidneys enhance symmetrically. There is no hydronephrosis or hydroureter of either kidney. No obstructing renal or ureteral calculus is noted. No perinephric or periureteral stranding. STOMACH AND BOWEL: Stomach is distended with food contents. The small bowel is normal in caliber. Stool is present throughout the colon. There is no mucosal thickening or evidence of obstruction. PELVIS: APPENDIX: The appendix is normal in caliber without surrounding inflammation. BLADDER: The bladder is incompletely distended. No stones. REPRODUCTIVE: The patient is status post hysterectomy. The ovaries are not definitively seen. ABDOMEN and PELVIS: INTRAPERITONEAL SPACE: Unremarkable. No free air. No significant fluid collection. BONES/JOINTS: No acute fracture. SOFT TISSUES: A battery pack is present within the soft tissues of the left flank. A small seroma within the soft tissues of the left flank at the site of prior battery pack is noted. Tiny fat-containing umbilical hernia is present. VASCULATURE: Unremarkable. No abdominal aortic aneurysm. LYMPH NODES: Unremarkable. No enlarged lymph nodes. TUBES, LINES AND DEVICES: A neural stimulator is noted entering the epidural space at L1-L2. IMPRESSION: 1. No acute findings on this without and with contrast CT of the abdomen and pelvis to explain the patient's symptoms. 2. Left solid pulmonary nodule measuring 8 mm. Per Fleischner Society Guidelines, recommend a non-con trast Chest CT at 6-12 months. If patient is high risk for malignancy, consider an additional non-contrast Chest CT at 18-24 months. If patient is low risk for malignancy, non-contrast Chest CT a t 18-24 months is optional. These guidelines do not apply to immunocompromised patients and patients with cancer. Follow up in patients with significant comorbidities as clinically warranted. F or lung cancer screening, adhere to Lung-RADS guidelines. Reference: Radiology. 2017; 284(1):228-43. Electronically signed by: Sandy Vizcarra MD 12/07/2024 11:25 PM CDT Due to temporary technical issues with the PACS/[employer] reporting system, reports are being jessee d by the in-house radiologist without review as a courtesy to ensure prompt reporting the interpreting radiologist is fully responsible for the content of the report. Transcribed Date/Time: 12/07/2024 11:29 PM
--- NOTE | 2024-12-08 00:33 | ER ---
Nurse's Notes [facility] Name: Anaid Perez Age: 39 yrs Sex: Female : 1985 Arrival Date: 12/07/2024 Time: 21:00 Bed 5 Private MD: Diagnosis: Lower abdominal pain, unspecified;Hypokalemia Presentation: 12/07 21:17 Chief complaint: Patient states: RLQ pain x2days , pt states "its the same pain i felt kb4 when my L ovary ruptured". Coronavirus screen: At this time, unable to obtain information related to travel outside the [place] Ebola Screen: No symptoms or risks identified at this time. Initial Sepsis Screen: Does the patient meet any 2 criteria? No. Patient's initial sepsis screen is negative. Does the patient have a suspected source of infection? No. Patient's initial sepsis screen is negative. Risk Assessment: Do you want to hurt yourself or someone else? Patient reports no desire to harm self or others. Onset of symptoms was December 06, 2024. 21:17 Method Of Arrival: Ambulatory kb4 21:17 Acuity: KERLINE 3 kb4 Triage Assessment: 21:20 General: Appears distressed, uncomfortable, Behavior is calm, cooperative. Pain: kb4 Complains of pain in right lower quadrant. 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 - Infectious Disease History:: Denies. - Social history:: Smoking status: Patient reports the use of cigarette tobacco products, smokes one pack cigarettes per day. Screenin:45 [facility] ED Fall Risk Assessment (Adult) History of falling in the last 3 months, mf3 including since admission No falls in past 3 months (0 pts) Confusion or Disorientation No (0 pts) Intoxicated or Sedated No (0 pts) Impaired Gait No (0 pts) Mobility Assist Device Used No (0 pt) Altered Elimination No (0 pt) Score/Fall Risk Level 0 - 2 = Low Risk Oriented to surroundings, Hourly rounding (assess needs \\T\\ fall precautionary measures) done. Abuse screen: Denies threats or abuse. Denies injuries from another. Nutritional screening: No deficits noted. Tuberculosis screening: No symptoms or risk factors identified. Never had TB. Assessment: 21:45 General: Appears in no apparent distress. Behavior is calm, cooperative, appropriate mf3 for age. Pain: Complains of pain in suprapubic area Pain currently is 9 out of 10 on a pain scale. Neuro: Level of Consciousness is awake, alert, obeys commands, Oriented to person, place, time, situation, Appropriate for age. Cardiovascular: Capillary refill < 3 seconds. Respiratory: Airway is patent Trachea midline Respiratory effort is even, unlabored. GI: Bowel sounds present X 4 quads. Abd is soft X 4 quads. : No signs and/or symptoms were reported regarding the genitourinary system. 12/08 00:42 Reassessment: Patient appears in no apparent distress at this time. No changes from mf3 previously documented assessment. Patient and/or family updated on plan of care and expected duration. Pain level reassessed. Patient is alert, oriented x 3, equal unlabored respirations, skin warm/dry/pink. Patient states feeling better. Patient states symptoms have improved. Vital Signs: 12/07 21:17 BP 133 / 91; Pulse 84; Resp 18; Temp 98.4; Pulse Ox 97% on R/A; Weight 86.18 kg; Height kb4 4 ft. 11 in. ; Pain 8/10; 21:57 BP 135 / 84; Pulse 88; Resp 21; Pulse Ox 97% on R/A; mf3 22:58 BP 127 / 81; Pulse 82; Resp 20 S; Pulse Ox 98% on R/A; lg3 12/08 00:44 BP 131 / 77; Pulse 79; Resp 19 S; Pulse Ox 98% on R/A; lg3 12/07 21:17 Body Mass Index 38.37 (86.18 kg, 149.86 cm) kb4 12/07 21:17 Pain Scale: Adult kb4 [place] Coma Score: 12/07 21:45 Eye Response: spontaneous(4). Motor Response: obeys commands(6). Verbal Response: mf3 oriented(5). Total: 15. ED Course: 21:02 Patient arrived in ED. im 21:07 Eagle See DO is Attending Physician. tt7 21:08 Lilly Manzano, RN is Primary Nurse. mf3 21:15 Ru Roque PA-C is PHCP. cp 21:15 Eagle See DO is Attending Physician. cp 21:18 Triage completed. kb4 21:20 Arm band placed on right wrist. kb4 21:45 Bed in low position. Call light in reach. Side rails up X 1. Provided Education on:. mf3 21:45 No provider procedures requiring assistance completed. Inserted saline lock: 20 gauge mf3 in right antecubital area, using aseptic technique. 21:53 CBC with Diff Sent. mf3 21:53 CMP Sent. mf3 21:53 Lipase Sent. mf3 21:53 UA Rfx Eulogio Cult if indicated Sent. mf3 22:40 Transvaginal Study Probe In Process Unspecified. EDMS 23:01 CT Abd/Pelvis- W/WO Contrast In Process Unspecified. EDMS 12/08 00:45 IV discontinued, intact, bleeding controlled, No redness/swelling at site. Pressure lg3 dressing applied. Administered Medications: 12/07 21:52 Drug: fentaNYL (PF) IVP 50 mcg IVP once Route: IVP; Site: right antecubital; mf3 22:47 Follow up: Response: No adverse reaction; Pain is decreased cp4 21:52 Drug: Ondansetron IVP 4 mg IVP once; over 2 minutes Route: IVP; Site: right antecubital;mf3 22:47 Follow up: Response: No adverse reaction; Nausea is decreased cp4 21:53 Drug: NS 0.9% IV 1000 ml IV at 1 bolus Per protocol; to be given as a bolus over 60 mf3 minutes Route: IV; Rate: 1 bolus; Site: right antecubital; 12/08 00:46 Follow up: Response: No adverse reaction; IV Status: Completed infusion; IV Intake: lg3 1000ml 12/07 23:30 Drug: fentaNYL (PF) IVP 50 mcg IVP once Route: IVP; Site: right antecubital; cp4 12/08 00:15 Follow up: Response: No adverse reaction; Pain is decreased cp4 00:14 Drug: Droperidol IVP 1.25 mg IVP once Route: IVP; Site: right antecubital; 4 00:42 Follow up: Response: No adverse reaction 3 00:42 Drug: Potassium PO Effervescent Tablet 50 mEq PO once; dissolve in 4 ounces of water or mf3 juice Route: PO; 00:42 Follow up: Response: No adverse reaction mf3 Medication: 12/07 21:45 VIS not applicable for this client. mf3 Intake: 12/08 00:46 IV: 1000ml; Total: 1000ml. lg3 Outcome: 00:32 Discharge ordered by MD. cp 00:45 Discharged to home ambulatory, lg3 00:45 Condition: stable 00:45 Discharge instructions given to patient, Instructed on discharge instructions, follow up and referral plans. medication usage, Demonstrated understanding of instructions, follow-up care, medications, Prescriptions given X 2, 00:46 Patient left the ED. lg3 Signatures: Dispatcher [employer] EDMS Ru Roque PA-C PA-C cp Able, Lacie, RN RN lg3 Elva De Christina cp4 Rubi Thacker RN RN kb4 Lilly Manzano RN RN mf3 Eagle See DO DO tt7
--- NOTE | 2024-12-08 00:33 | EDPHYS ---
Physician Documentation [facility] Name: Anaid Perez Age: 39 yrs Sex: Female : 1985 Arrival Date: 12/07/2024 Time: 21:00 Bed 5 Private MD: ED Physician Eagle See HPI: 12/07 21:35 This 39 yrs old Female presents to ER via Ambulatory with complaints of Abdominal Pain. cp 21:35 The patient presents with abdominal pain. cp 21:35 Onset: The symptoms/episode began/occurred 2 day(s) ago. The symptoms radiate to cp Associated signs and symptoms: Pertinent positives: nausea, Pertinent negatives: constipation, diarrhea, dysuria, fever, vaginal discharge. The symptoms are described as constant. Severity of pain: in the emergency department the pain is unchanged despite home interventions. 21:35 Patient reports having left ovarian torsion that caused rupture. She underwent cp hysterectomy and left ovary removal surgery. She is concerned that the pain in the right lower area of her abdomen is similar to when she had pain with this previous left ovarian torsion. 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 - Infectious Disease History:: Denies. - Social history:: Smoking status: Patient reports the use of cigarette tobacco products, smokes one pack cigarettes per day. ROS: 21:40 Constitutional: Negative for body aches, chills, fever, poor PO intake, cp 21:40 Eyes: Negative for injury, pain, redness, and discharge, cp 21:40 Cardiovascular: Negative for chest pain, 21:40 Respiratory: Negative for cough, shortness of breath, wheezing, 21:40 Abdomen/GI: Positive for abdominal pain, nausea, of the right lower quadrant, Negative for diarrhea, constipation, active vomiting, 21:40 : Negative for hematuria, burning with urination, vaginal bleeding, 21:40 Neuro: Negative for dizziness, weakness, 21:40 All other systems are negative, Exam: 21:45 Constitutional: The patient appears in no acute distress, alert, awake, non-toxic, well cp developed, well nourished, uncomfortable, 21:45 Head/Face: Normocephalic, atraumatic. cp 21:45 Eyes: Periorbital structures: appear normal, Conjunctiva: normal, no exudate, no injection, Sclera: no appreciated abnormality, Lids and lashes: appear normal, bilaterally, 21:45 ENT: External ear(s): are unremarkable, Nose: is normal, Mouth: Lips: moist, Oral mucosa: moist, Posterior pharynx: Airway: no evidence of obstruction, patent, 21:45 Chest/axilla: Inspection: normal, 21:45 Cardiovascular: Rate: normal, Rhythm: regular, 21:45 Respiratory: the patient does not display signs of respiratory distress, Respirations: normal, no use of accessory muscles, no retractions, labored breathing, is not present, Breath sounds: are clear throughout, no decreased breath sounds, no stridor, no wheezing, 21:45 Abdomen/GI: Inspection: abdomen appears normal, Bowel sounds: active, all quadrants, Palpation: soft, in all quadrants, moderate abdominal tenderness, in the right lower quadrant, rebound tenderness, is not appreciated, involuntary guarding, is not appreciated, 21:45 Back: CVA tenderness, is absent, 21:45 Skin: cellulitis, is not appreciated, no rash present. Vital Signs: 21:17 BP 133 / 91; Pulse 84; Resp 18; Temp 98.4; Pulse Ox 97% on R/A; Weight 86.18 kg; Height kb4 4 ft. 11 in. ; Pain 8/10; 21:57 BP 135 / 84; Pulse 88; Resp 21; Pulse Ox 97% on R/A; mf3 22:58 BP 127 / 81; Pulse 82; Resp 20 S; Pulse Ox 98% on R/A; lg3 12/08 00:44 BP 131 / 77; Pulse 79; Resp 19 S; Pulse Ox 98% on R/A; lg3 12/07 21:17 Body Mass Index 38.37 (86.18 kg, 149.86 cm) 4 12/07 21:17 Pain Scale: Adult kb4 Andre[place] Coma Score: 12/07 21:45 Eye Response: spontaneous(4). Motor Response: obeys commands(6). Verbal Response: mf3 oriented(5). Total: 15. MDM: 21:15 Medical Screening Exam initiated cp 12/08 00:32 Data reviewed: vital signs, nurses notes, lab test result(s), radiologic studies, CT cp scan, ultrasound. 00:32 Differential diagnosis: appendicitis, Ovarian Torsion, Pyelonephritis, Tubal Ovarian cp Abcess, Ureterolithiasis, urinary tract infection. I considered the following discharge prescriptions or medication management in the emergency department Medications were administered in the Emergency Department. See MAR. Counseling: I had a detailed discussion with the patient and/or guardian regarding the historical points, exam findings, and any diagnostic results supporting the discharge/admit diagnosis, lab results, radiology results, to return to the emergency department if symptoms worsen or persist or if there are any questions or concerns that arise at home. Response to treatment: the patient's symptoms have mildly improved after treatment, and as a result, I will discharge patient. Special discussion: Based on the patient's Hx, exam, and Dx evaluation, there is no indication for emergent surgery or inpatient Tx. It is understood by the patient/guardian that if the Sx's persist or worsen they need to return immediately for re-evaluation. 12/07 21:30 Order name: CBC with Diff; Complete Time: 00:18 cp 12/07 21:30 Order name: CMP; Complete Time: 00:18 cp 12/08 00:19 Interpretation: Normal except: K 3.1; CL 110; GLUC 121; AST 12; GLOB 3.7; A/G 0.9. cp 12/07 21:30 Order name: Lipase; Complete Time: 00:18 cp 12/07 21:30 Order name: UA Rfx Eulogio Cult if indicated; Complete Time: 00:18 cp 12/07 21:30 Order name: CT Abd/Pelvis- W/WO Contrast 12/08 00:23 Interpretation: Reviewed. 12/07 22:40 Order name: Transvaginal Study Probe EDMS 12/07 21:30 Order name: IV Saline Lock; Complete Time: 22:01 cp 12/07 21:30 Order name: Labs collected and sent; Complete Time: 22:01 cp Administered Medications: 12/07 21:52 Drug: fentaNYL (PF) IVP 50 mcg IVP once Route: IVP; Site: right antecubital; mf3 22:47 Follow up: Response: No adverse reaction; Pain is decreased cp4 21:52 Drug: Ondansetron IVP 4 mg IVP once; over 2 minutes Route: IVP; Site: right antecubital;mf3 22:47 Follow up: Response: No adverse reaction; Nausea is decreased cp4 21:53 Drug: NS 0.9% IV 1000 ml IV at 1 bolus Per protocol; to be given as a bolus over 60 mf3 minutes Route: IV; Rate: 1 bolus; Site: right antecubital; 12/08 00:46 Follow up: Response: No adverse reaction; IV Status: Completed infusion; IV Intake: lg3 1000ml 12/07 23:30 Drug: fentaNYL (PF) IVP 50 mcg IVP once Route: IVP; Site: right antecubital; cp4 12/08 00:15 Follow up: Response: No adverse reaction; Pain is decreased cp4 00:14 Drug: Droperidol IVP 1.25 mg IVP once Route: IVP; Site: right antecubital; 4 00:42 Follow up: Response: No adverse reaction 3 00:42 Drug: Potassium PO Effervescent Tablet 50 mEq PO once; dissolve in 4 ounces of water or mf3 juice Route: PO; 00:42 Follow up: Response: No adverse reaction 3 Disposition Summary: 12/08/24 00:32 Discharge Ordered Notes: Location: Home cp Problem: new cp Symptoms: have improved cp Condition: Stable cp Diagnosis - Lower abdominal pain, unspecified cp - Hypokalemia cp Followup: cp - With: Private Physician - When: 2 - 3 days - Reason: Recheck today's complaints Discharge Instructions: - Discharge Summary Sheet cp - Abdominal Pain, Adult cp - Potassium Content of Foods cp - Hypokalemia cp Forms: - Medication Reconciliation Form cp - Antibiotic Education cp - Prescription Opioid Use cp - Patient Portal Instructions cp - Leadership Thank You Letter cp Prescriptions: - Zofran 4 mg Oral Tablet - take 1 tablet ORAL route every 12 hours As needed; 20 tablet; Refills: 0, cp Product Selection Permitted - Diclofenac Sodium 75 mg Oral Tablet Sustained Release - take 1 tablet ORAL route 2 times per day; 30 tablet; Refills: 0, Product cp Selection Permitted Addendum: 12/09/2024 07:18 Co-signature as Attending Physician, Eagle See DO I reviewed the patient's care t t7 provided by the Advanced Practice Provider and agree with the diagnosis and treatment plan. Signatures: Dispatcher [employer] EDMS Ru Roque PA-C PA-C cp Potter, Christina cp4 Rubi Thacker, RN RN kb4 Lilly Manzano RN RN mf3 Eagle See DO DO tt7 Aurea Hobbs RN lg3 Corrections: (The following items were deleted from the chart) 12/07 22:40 21:31 Pelvis Complete+[id number] ordered. EDMS EDMS
[2024-12-08] MEDS ORDERED: POTASSIUM 25 MEQ EFFERV TAB ONE (00:38)
[2024-12-08 01:02] VITALS: TEMP 98.4
[2024-12-08 01:04] VITALS: O2SAT 98
[2024-12-08 01:05] VITALS: BP 131/77
--- NOTE | 2024-12-10 08:30 | RAD REPORT ---
EXAM: US Pelvis Transvaginal CLINICAL HISTORY: The patient is 39 years old and is Female; right adnexal pain, r/o torsion TECHNIQUE: Real-time transvaginal pelvic ultrasound with image documentation. Transvaginal imaging was used for better evaluation of the endometrium and adnexa. COMPARISON: No relevant prior studies available. FINDINGS: LIMITATIONS: Examination is significantly limited secondary to bowel gas. UTERUS/CERVIX: The patient is status post hysterectomy. RIGHT OVARY: The right ovary is not visualized secondary to bowel gas. LEFT OVARY: The left ovary is not visualized secondary to bowel gas. FREE FLUID: No free fluid. BLADDER: Empty bladder which cannot be evaluated with this probe. IMPRESSION: Nonvisualization of the ovaries secondary to bowel gas. Unable to exclude torsion. Electronically signed by: Sandy Vizcarra MD 12/07/2024 11:11 PM CDT RP Due to temporary technical issues with the PACS/[facility] reporting system, reports are being jessee d by the in-house radiologist without review as a courtesy to ensure prompt reporting the interpreting radiologist is fully responsible for the content of the report. Transcribed Date/Time: 12/10/2024 8:30 AM
== END 2024-12-08 00:46 | disposition home or self-care (01) ==
LOC: ER 21:00
DX: R10.31 Right lower quadrant pain (principal); E87.6 Hypokalemia; F17.210 Nicotine dependence, cigarettes, uncomplicated; Z88.2 Allergy status to sulfonamides; Z88.5 Allergy status to narcotic agent; Z88.8 Allergy status to other drugs, medicaments and biological substances
CPT/HCPCS: 96361; 85025; 81001; 36415; 83690; 80053; 74178; 76830; 96375; 96374; 99284; Q9967; J3010 ×2; J2405; J1790; J7030